=== PATIENT | male | born 1940 | race Caucasian/White ===

== ENCOUNTER 2021-09-28 12:03 | Inpatient (IN) ==
[2021-09-28] MEDS ORDERED: *HR* FentaNYL (PF) 100 MCG/2 ML VIAL IVP STA ×2 (13:29→14:25)
[2021-09-28] MEDS ORDERED: Ondansetron 4 MG/2 ML VIAL IVP ONE (13:30)
[2021-09-28] MEDS ORDERED: Melatonin 3 MG TABLET PO PRN (14:46)
[2021-09-28] MEDS ORDERED: *HR* HYDROcodone/Acet 5/325 mg TABLET PO PRN (14:46)
[2021-09-28] MEDS ORDERED: Ondansetron 4 MG/2 ML VIAL IVP PRN (14:46)
[2021-09-28 15:20] LABS: Hemoglobin 13.8 g/dL (12.9-16.9); Mean Corpuscular HGB Conc 32.9 g/dL (31.6-35.5); Mean Corpuscular Hemoglobin 31.1 pg (28.0-33.3); Mean Corpuscular Volume 94.6 fL (83.0-100.0); Mean Platelet Volume 10.4 fL (9.4-12.4); Platelet Count 242 K/mcL (140-400); Red Blood Count 4.44 M/mcL (4.19-5.50); Red Cell Distribution Width 12.5 % (11.5-14.5); White Blood Count 10.6 K/mcL (4.3-11.1)
[2021-09-28 15:37] LABS: BUN/Creatinine Ratio 28 (6-26); Blood Urea Nitrogen 21 mg/dL (8-23); Calcium 9.4 mg/dL (8.6-10.3); Carbon Dioxide 31 mEq/L (23-29); Chloride 104 mEq/L (98-107); Glucose 113 mg/dL (70-105); Osmolality,Calculated 290 (280-300); Potassium 4.2 mEq/L (3.5-5.1); Sodium 138 mEq/L (136-145); eGFR For African Americans > 60 (> 60); eGFR For Non-African Americans > 60 (> 60)
[2021-09-28] MEDS: Ringers Solution, Lactated 1,000 ML IVC SCH (16:46)
[2021-09-28] MEDS: *HR* OxyCODONE/APAP 5/325 TABLET PO PRN (17:40)
[2021-09-28] MEDS: *HR* HYDROmorphone (PF) 1 MG/ML SYRINGE IVP PRN (20:01)
[2021-09-28] MEDS: Carbidopa/Levodopa [Rytary Er 36.25 Mg-145 Mg Cap] PO SCH (20:17)
[2021-09-29] MEDS: *HR* OxyCODONE/APAP 5/325 TABLET PO PRN ×2 (00:15→08:00)
[2021-09-29] MEDS: Ringers Solution, Lactated 1,000 ML IVC SCH ×2 (02:56→12:54)
[2021-09-29] MEDS: *HR* HYDROmorphone (PF) 1 MG/ML SYRINGE IVP PRN (03:00)
[2021-09-29] MEDS: Carbidopa/Levodopa [Rytary Er 36.25 Mg-145 Mg Cap] PO SCH ×3 (08:01→20:54)
[2021-09-29] MEDS ORDERED: Albumin Human 5% 12.5 GM/250 ML IV.SOLN ONE (10:32)
[2021-09-29] MEDS ORDERED: *HR* Succinylcholine 200 MG/10 ML VIAL IVP ONE (11:59)
[2021-09-29] MEDS ORDERED: *HR* Rocuronium Bromide 50 MG/5 ML VIAL ONE (11:59)
[2021-09-29] MEDS ORDERED: Ondansetron 4 MG/2 ML VIAL ONE (11:59)
[2021-09-29] MEDS ORDERED: Sugammadex Sodium 200 MG/2 ML VIAL IV ONE ×2 (11:59→14:41)
[2021-09-29] MEDS ORDERED: Lidocaine -MPF 2% 2 ML VIAL ONE (11:59)
[2021-09-29] MEDS ORDERED: Lidocaine HCL 4 ML Topical Solution (Laryng-O-Jet Kit Sterile Pak) TP ONE (11:59)
[2021-09-29] MEDS ORDERED: Tranexamic Acid 1,000 MG/10 ML VIAL ONE (12:06)
[2021-09-29] MEDS ORDERED: *HR* Propofol 200 MG/20 ML VIAL IVP ONE (12:07)
[2021-09-29] MEDS ORDERED: *HR* FentaNYL (PF) 100 MCG/2 ML VIAL ONE (12:07)
[2021-09-29] MEDS ORDERED: *HR* HYDROMORPHONE 2 MG/ML VIAL ONE (12:07)
[2021-09-29] MEDS ORDERED: *HR* Phenylephrine 10 MG/ML VIAL ONE (12:07)
[2021-09-29] MEDS ORDERED: Vancomycin 1,000 MG VIAL ONE (13:39)
[2021-09-29] MEDS ORDERED: *HR* HYDROmorphone PF 0.5 MG/0.5 ML SYRINGE IVP PRN (14:12)
[2021-09-29] MEDS ORDERED: *HR* Labetalol 20 MG/4 ML SYRINGE IVP ONE (14:47)
[2021-09-29] MEDS ORDERED: HYDROcodone BIT/Homatropine 5 MG TABLET PO PRN (15:53)
[2021-09-29] MEDS ORDERED: Sennosides 8.6 MG TABLET PO PRN (15:53)
[2021-09-29] MEDS ORDERED: *HR* Promethazine 25 MG/ML VIAL IM PRN (15:53)
[2021-09-29] MEDS ORDERED: Ondansetron 4 MG/2 ML VIAL IVP PRN (15:53)
[2021-09-29] MEDS ORDERED: Naloxone 0.4 MG/ML INJ IVP PRN (15:53)
[2021-09-29] MEDS ORDERED: MOM Conc 10 ML UD.LIQ PO PRN (15:53)
[2021-09-29] MEDS ORDERED: Ringers Solution, Lactated 1,000 ML IVC SCH (16:00)
[2021-09-29] MEDS ORDERED: ROPIVACAINE/PF/NS 0.25% 1 EACH SYRINGE INTRAART ONE (16:31)
[2021-09-29] MEDS: Ascorbic Acid 500 MG TABLET PO SCH (18:11)
[2021-09-29] MEDS: Apixaban 2.5 MG TABLET PO SCH ×2 (20:54→21:09)
[2021-09-29] MEDS: CeFAZolin 2 GM/120 ML BAG IVPB SCH (21:49)
[2021-09-30] MEDS: *HR* OxyCODONE Immed Rel 5 MG TABLET PO PRN ×2 (02:37→18:07)
[2021-09-30] MEDS: CeFAZolin 2 GM/120 ML BAG IVPB SCH (05:43)
[2021-09-30 06:31] LABS: Basophils % 0.2 %; Hemoglobin 12.9 g/dL (12.9-16.9); Immature Granulocytes % 0.6 % (0-4); Lymphocytes % 8.2 %; Mean Corpuscular HGB Conc 33.1 g/dL (31.6-35.5); Mean Corpuscular Hemoglobin 31.6 pg (28.0-33.3); Mean Corpuscular Volume 95.6 fL (83.0-100.0); Mean Platelet Volume 10.4 fL (9.4-12.4); Monocytes # 1.4 K/mcL (0.0-1.3); Monocytes % 11.1 %; Neutrophils # 9.7 K/mcL (1.6-8.9); Platelet Count 210 K/mcL (140-400); Red Blood Count 4.08 M/mcL (4.19-5.50); Red Cell Distribution Width 12.6 % (11.5-14.5); Segmented Neutrophils % 79.9 %; White Blood Count 12.1 K/mcL (4.3-11.1)
[2021-09-30 06:51] LABS: BUN/Creatinine Ratio 19 (6-26); Blood Urea Nitrogen 15 mg/dL (8-23); Calcium 8.9 mg/dL (8.6-10.3); Carbon Dioxide 27 mEq/L (23-29); Chloride 104 mEq/L (98-107); Glucose 117 mg/dL (70-105); Osmolality,Calculated 288 (280-300); Potassium 4.3 mEq/L (3.5-5.1); Sodium 138 mEq/L (136-145); eGFR For African Americans > 60 (> 60); eGFR For Non-African Americans > 60 (> 60)
[2021-09-30] MEDS: Ascorbic Acid 500 MG TABLET PO SCH ×2 (08:44→16:04)
[2021-09-30] MEDS: Carbidopa/Levodopa [Rytary Er 36.25 Mg-145 Mg Cap] PO SCH ×4 (08:44→19:20)
[2021-09-30] MEDS: Multivit/Ca/Min/Fe/FA 1 TAB TABLET PO SCH (08:45)
[2021-09-30] MEDS: Apixaban 2.5 MG TABLET PO SCH ×2 (08:45→19:17)
[2021-09-30] MEDS: QUEtiapine Fumarate 25 MG TABLET PO SCH (20:39)
[2021-10-01] MEDS: *HR* OxyCODONE Immed Rel 5 MG TABLET PO PRN (02:42)
[2021-10-01] MEDS: Ascorbic Acid 500 MG TABLET PO SCH ×2 (08:47→15:38)
[2021-10-01] MEDS: Carbidopa/Levodopa [Rytary Er 36.25 Mg-145 Mg Cap] PO SCH ×4 (08:47→19:40)
[2021-10-01] MEDS: Apixaban 2.5 MG TABLET PO SCH ×2 (08:47→19:59)
[2021-10-01] MEDS: Multivit/Ca/Min/Fe/FA 1 TAB TABLET PO SCH (08:47)
[2021-10-01] MEDS ORDERED: Acetaminophen IV 1,000 MG/100 ML BAG IVPB ONE (09:51)
[2021-10-01] MEDS ORDERED: Ringers Solution, Lactated 500 ML IVC ONE ×2 (09:54→13:06)
[2021-10-01 13:35] LABS: Bilirubin,Urine Negative (Negative); Blood,Urine Trace (Negative); Clarity,Urine Clear (Clear); Color,Urine Yellow (Yellow); Glucose,Urine (UA) Normal (Normal); Ketones,Urine 10 mg/dL (Negative); Leukocyte Esterase,Urine Negative (Negative); Mucus,Urine Few per lpf (None-Few); Nitrite,Urine Negative (Negative); Protein,Urine 50 mg/dL (Neg-Trace); Specific Gravity,Urine > 1.030 (1.010-1.025)
[2021-10-01 13:47] LABS: Hematocrit 38.5 % (37.5-50.1); Hemoglobin 12.6 g/dL (12.9-16.9); Mean Corpuscular HGB Conc 32.7 g/dL (31.6-35.5); Mean Corpuscular Hemoglobin 31.5 pg (28.0-33.3); Mean Corpuscular Volume 96.3 fL (83.0-100.0); Mean Platelet Volume 10.5 fL (9.4-12.4); Platelet Count 227 K/mcL (140-400); Red Cell Distribution Width 13.1 % (11.5-14.5); White Blood Count 8.1 K/mcL (4.3-11.1)
[2021-10-01] MEDS: Acetaminophen IV 1,000 MG/100 ML BAG IVPB SCH ×2 (16:52→23:04)
[2021-10-01] MEDS: QUEtiapine Fumarate 25 MG TABLET PO SCH (20:00)
[2021-10-01 21:51] LABS: VBG HCO3 27 mEq/L (21-27); VBG PCO2 33 mmHg (41-51); VBG PH 7.52 pH Units (7.32-7.42); VBG PO2 165 mmHg (25-50)
[2021-10-02] MEDS: Acetaminophen IV 1,000 MG/100 ML BAG IVPB SCH ×3 (06:01→17:05)
[2021-10-02] MEDS: Ascorbic Acid 500 MG TABLET PO SCH ×2 (08:00→17:06)
[2021-10-02] MEDS: Multivit/Ca/Min/Fe/FA 1 TAB TABLET PO SCH (08:01)
[2021-10-02] MEDS: Apixaban 2.5 MG TABLET PO SCH ×2 (08:01→20:15)
[2021-10-02] MEDS: Carbidopa/Levodopa [Rytary Er 36.25 Mg-145 Mg Cap] PO SCH ×4 (08:03→20:16)
[2021-10-02 10:32] LABS: Hemoglobin 12.9 g/dL (12.9-16.9); Mean Corpuscular HGB Conc 33.1 g/dL (31.6-35.5); Mean Corpuscular Hemoglobin 31.8 pg (28.0-33.3); Mean Corpuscular Volume 96.1 fL (83.0-100.0); Mean Platelet Volume 10.6 fL (9.4-12.4); Platelet Count 249 K/mcL (140-400); Red Blood Count 4.06 M/mcL (4.19-5.50); Red Cell Distribution Width 12.9 % (11.5-14.5); White Blood Count 8.3 K/mcL (4.3-11.1)
[2021-10-02 11:02] LABS: BUN/Creatinine Ratio 29 (6-26); Blood Urea Nitrogen 23 mg/dL (8-23); Calcium 9.2 mg/dL (8.6-10.3); Carbon Dioxide 28 mEq/L (23-29); Chloride 102 mEq/L (98-107); Glucose 142 mg/dL (70-105); Osmolality,Calculated 290 (280-300); Potassium 3.8 mEq/L (3.5-5.1); Sodium 137 mEq/L (136-145); eGFR For African Americans > 60 (> 60); eGFR For Non-African Americans > 60 (> 60)
[2021-10-02] MEDS: QUEtiapine Fumarate 25 MG TABLET PO SCH (21:31)
[2021-10-03] MEDS: Acetaminophen 325 MG TABLET PO PRN ×2 (03:46→12:14)
[2021-10-03 07:31] VITALS: BP 127/75; PULSE 81; TEMP 98.1; O2SAT 90
[2021-10-03] MEDS: Carbidopa/Levodopa [Rytary Er 36.25 Mg-145 Mg Cap] PO SCH ×2 (10:27→13:36)
[2021-10-03] MEDS: Multivit/Ca/Min/Fe/FA 1 TAB TABLET PO SCH (10:28)
[2021-10-03] MEDS: Ascorbic Acid 500 MG TABLET PO SCH (10:28)
[2021-10-03] MEDS: Apixaban 2.5 MG TABLET PO SCH (10:28)
== END 2021-10-03 15:37 | DRG 521 ==
LOC: EMEROOARM 12:03 → 4WAOSI 12:03 → SUATTDRO 14:55 → 4WAOSI 15:38
PROVIDERS: ADMIT Internal Medicine; ATTEND Internal Medicine